=== PATIENT | male | born 2000 | race Caucasian/White ===

== ENCOUNTER 2025-02-01 18:19 | Emergency (ER) | payer BC ==
[2025-02-01] MEDS: Diphtheria,Pertussis(Acell),Tetanus Vaccine 0.5 ML Syringe IM ONE (19:05)
[2025-02-01] MEDS: Lidocaine 1% 5 ML VIAL INJECT ONE (19:05)
== END 2025-02-01 19:11 | disposition home or self-care (01) ==
LOC: MW.ED 18:19
DX: S61.217A Laceration without foreign body of left little finger without damage to nail, initial encounter (principal); F17.200 Nicotine dependence, unspecified, uncomplicated; Z88.8 Allergy status to other drugs, medicaments and biological substances; W45.8XXA Other foreign body or object entering through skin, initial encounter; Z23 Encounter for immunization
CPT/HCPCS: 12001; 90471; 90715; 99283; J2003; 12041